=== PATIENT | male | born 1955 | race Caucasian/White ===

== ENCOUNTER 2022-10-15 14:44 | Inpatient (IN) | payer MEDICARE ==
[2022-10-15 16:19] VITALS: BMI 26.3
[2022-10-15] MEDS ORDERED: hydrALAZINE 20 MG/ML VIAL SLOW IVP PRN (17:21)
[2022-10-15] MEDS ORDERED: Dextrose 5% in Water 1,000 ML IV PRN (17:21)
[2022-10-15] MEDS ORDERED: Dextrose 50% Abboject 50 ML SYRINGE SLOW IVP PRN (17:21)
[2022-10-15] MEDS ORDERED: Morphine 4 MG/ML VIAL SLOW IVP PRN (17:21)
[2022-10-15] MEDS ORDERED: Sodium Chloride 0.9% 1,000 ML IV SCH (17:30)
[2022-10-15] MEDS: Ketorolac Tromethamine 30 MG/ML VIAL IVP SCH ×2 (17:51→23:45)
[2022-10-15] MEDS: Acetaminophen 500 MG TAB PO SCH ×2 (17:51→23:46)
[2022-10-15] MEDS: traMADol HCl 50 MG TAB PO SCH ×2 (17:52→23:46)
[2022-10-15] MEDS: Gabapentin 300 MG CAP PO SCH (21:10)
[2022-10-15] MEDS: Tamsulosin HCl 0.4 MG CAP PO SCH (21:10)
[2022-10-15] MEDS: Senokot S 8.6-50 MG TAB PO SCH (21:10)
[2022-10-15] MEDS: Famotidine 20 MG TAB PO SCH (21:12)
[2022-10-16 05:30] LABS: #Eosinphils 0.2 thou/uL (0.0-0.7); #Lymphocytes 1.3 thou/uL (1.20-3.40); #Neutrophils 5.5 thou/uL (1.40-6.50); %Basophils 0.1 % (0.0-1.0); %Lymphocytes 15.8 % (21.0-51.0); %Monocytes 12.6 % (0.0-10.0); %Neutrophils 69.5 % (42.0-75.0); Hemoglobin 12.3 g/dL (14.0-18.0); Mean Corpuscular HGB CONC 34.4 g/dL (32.0-36.0); Mean Corpuscular Hemoglobin 34.4 pg (27.0-31.0); Mean Corpuscular Volume 99.7 fl (78.0-98.0); Mean Platelet Volume 7.7 fL (7.4-10.4); Platelet Count 160 10x3/uL (130-400); RBC Distribution Width 11.6 % (11.5-14.5); Red Blood Cell (RBC) Count 3.57 mill/uL (4.70-6.10)
[2022-10-16] MEDS: Ketorolac Tromethamine 30 MG/ML VIAL IVP SCH (05:39)
[2022-10-16] MEDS: Acetaminophen 500 MG TAB PO SCH ×3 (05:40→18:01)
[2022-10-16] MEDS: traMADol HCl 50 MG TAB PO SCH ×3 (05:40→18:02)
[2022-10-16 06:08] LABS: Anion Gap 11 mmol/L (10-20); BUN (Urea Nitrogen) 17 mg/dL (8.4-25.7); Calc. Creatinine Clearance 68 mL/min (70-130); Calcium 8.3 mg/dL (7.8-10.44); Carbon Dioxide 22 mmol/L (23-31); Chloride 105 mmol/L (98-107); Estimated GFR 71; Glucose 110 mg/dL (80-115); Phosphorus 3.2 mg/dL (2.3-4.7); Potassium 4.1 mmol/L (3.5-5.1); Sodium 134 mmol/L (136-145)
[2022-10-16] MEDS: Gabapentin 300 MG CAP PO SCH ×3 (09:21→21:02)
[2022-10-16] MEDS: Senokot S 8.6-50 MG TAB PO SCH ×2 (09:22→21:04)
[2022-10-16] MEDS: Famotidine 20 MG TAB PO SCH ×2 (09:22→21:03)
[2022-10-16] MEDS: Cyclobenzaprine 10 MG TAB PO PRN ×2 (09:22→18:06)
[2022-10-16] MEDS: Polyethylene Glycol 3350 17 GM Packet PO SCH (09:23)
[2022-10-16] MEDS: Ibuprofen 200 MG TAB PO SCH ×2 (12:58→21:03)
[2022-10-16] MEDS ORDERED: Iopamidol-370 76% 500 ML MDV (1 ML CHARGE) ONE (14:04)
[2022-10-16] MEDS: Tamsulosin HCl 0.4 MG CAP PO SCH (21:04)
[2022-10-17] MEDS: traMADol HCl 50 MG TAB PO SCH ×5 (00:01→19:09)
[2022-10-17] MEDS: Acetaminophen 500 MG TAB PO SCH ×4 (05:55→19:08)
[2022-10-17] MEDS: Ibuprofen 200 MG TAB PO SCH (05:56)
[2022-10-17] MEDS: Cyclobenzaprine 10 MG TAB PO PRN ×2 (05:58→19:09)
[2022-10-17 08:24] LABS: #Eosinphils 0.3 thou/uL (0.0-0.7); #Lymphocytes 0.9 thou/uL (1.20-3.40); #Monocytes 1.2 thou/uL (0.11-0.59); #Neutrophils 8.2 thou/uL (1.40-6.50); %Basophils 0.1 % (0.0-1.0); %Eosinophils 3.2 % (0.0-10.0); %Lymphocytes 8.7 % (21.0-51.0); %Monocytes 11.5 % (0.0-10.0); %Neutrophils 76.5 % (42.0-75.0); Hemoglobin 13.4 g/dL (14.0-18.0); Mean Corpuscular Hemoglobin 32.2 pg (27.0-31.0); Mean Platelet Volume 7.5 fL (7.4-10.4); Platelet Count 178 10x3/uL (130-400); RBC Distribution Width 11.7 % (11.5-14.5); Red Blood Cell (RBC) Count 4.15 mill/uL (4.70-6.10); White Blood Cell (WBC) Count 10.7 10x3/uL (4.8-10.8)
[2022-10-17] MEDS: Gabapentin 300 MG CAP PO SCH ×3 (08:42→21:20)
[2022-10-17] MEDS: Famotidine 20 MG TAB PO SCH ×2 (08:42→21:19)
[2022-10-17 08:58] LABS: Anion Gap 12 mmol/L (10-20); BUN (Urea Nitrogen) 17 mg/dL (8.4-25.7); Calc. Creatinine Clearance 0 mL/min (70-130); Calcium 9.5 mg/dL (7.8-10.44); Carbon Dioxide 23 mmol/L (23-31); Chloride 105 mmol/L (98-107); Estimated GFR 55; Glucose 117 mg/dL (80-115); Magnesium 1.9 mg/dL (1.6-2.6); Phosphorus 2.5 mg/dL (2.3-4.7); Potassium 4.4 mmol/L (3.5-5.1); Sodium 136 mmol/L (136-145)
[2022-10-17] MEDS ORDERED: Sodium Chloride 0.9% 1,000 ML IV SCH (09:00)
[2022-10-17] MEDS: Senokot S 8.6-50 MG TAB PO SCH ×2 (13:03→21:19)
[2022-10-17] MEDS ORDERED: fentaNYL PF 100 MCG/2 ML SYRINGE ONE (16:22)
[2022-10-17] MEDS ORDERED: Ondansetron PF 4 MG/2 ML Vial ONE (16:35)
[2022-10-17] MEDS ORDERED: Dexamethasone 20 MG/5 ML VIAL ONE (16:35)
[2022-10-17] MEDS ORDERED: Lidocaine 1% PF 5 ML VIAL ONE (16:35)
[2022-10-17] MEDS ORDERED: ePHEDrine Sulfate 50 MG/10 ML VIAL ONE (16:35)
[2022-10-17] MEDS ORDERED: PROPOFOL 200 MG/20 ML VIAL ONE (16:35)
[2022-10-17] MEDS ORDERED: Iopamidol 45 ML ONE (16:46)
[2022-10-17] MEDS ORDERED: Iopamidol 0 ML ONE (16:46)
[2022-10-17] MEDS: Sodium Chloride 0.9% 1,000 ML IV SCH ×2 (17:27→19:10)
[2022-10-17] MEDS: Polyethylene Glycol 3350 17 GM Packet PO SCH (19:10)
[2022-10-17] MEDS: Tamsulosin HCl 0.4 MG CAP PO SCH (21:20)
[2022-10-17] MEDS: traMADol HCl 50 MG TAB PO PRN (21:30)
[2022-10-18] MEDS: traMADol HCl 50 MG TAB PO SCH ×5 (00:33→23:01)
[2022-10-18] MEDS: Acetaminophen 500 MG TAB PO SCH ×3 (00:33→12:51)
[2022-10-18] MEDS: Sodium Chloride 0.9% 1,000 ML IV SCH (05:17)
[2022-10-18] MEDS: Cyclobenzaprine 10 MG TAB PO PRN ×2 (05:22→13:43)
[2022-10-18 07:03] LABS: #Lymphocytes 0.8 thou/uL (1.20-3.40); #Monocytes 0.9 thou/uL (0.11-0.59); %Basophils 0.2 % (0.0-1.0); %Eosinophils 0.2 % (0.0-10.0); %Lymphocytes 6.7 % (21.0-51.0); %Monocytes 7.5 % (0.0-10.0); %Neutrophils 85.4 % (42.0-75.0); Hemoglobin 12.6 g/dL (14.0-18.0); Mean Corpuscular HGB CONC 33.1 g/dL (32.0-36.0); Mean Corpuscular Hemoglobin 33.6 pg (27.0-31.0); Mean Platelet Volume 7.8 fL (7.4-10.4); Platelet Count 208 10x3/uL (130-400); RBC Distribution Width 11.7 % (11.5-14.5); Red Blood Cell (RBC) Count 3.74 mill/uL (4.70-6.10); White Blood Cell (WBC) Count 11.7 10x3/uL (4.8-10.8)
[2022-10-18 07:24] LABS: Anion Gap 12 mmol/L (10-20); BUN (Urea Nitrogen) 15 mg/dL (8.4-25.7); Calc. Creatinine Clearance 0 mL/min (70-130); Calcium 9.2 mg/dL (7.8-10.44); Carbon Dioxide 22 mmol/L (23-31); Chloride 104 mmol/L (98-107); Estimated GFR 71; Glucose 143 mg/dL (80-115); Phosphorus 2.7 mg/dL (2.3-4.7); Potassium 4.4 mmol/L (3.5-5.1); Sodium 134 mmol/L (136-145)
[2022-10-18] MEDS: Gabapentin 300 MG CAP PO SCH ×3 (08:19→20:08)
[2022-10-18] MEDS: Senokot S 8.6-50 MG TAB PO SCH ×2 (08:22→20:07)
[2022-10-18] MEDS: Famotidine 20 MG TAB PO SCH (08:22)
[2022-10-18] MEDS: Polyethylene Glycol 3350 17 GM Packet PO SCH (08:22)
[2022-10-18] MEDS: traMADol HCl 50 MG TAB PO PRN (09:34)
[2022-10-18] MEDS: Ondansetron PF 4 MG/2 ML Vial IVP PRN (14:11)
[2022-10-18] MEDS ORDERED: Morphine 2 MG/ML VIAL SLOW IVP SCH (15:00)
[2022-10-18] MEDS: Acetaminophen 325 MG TAB PO SCH ×2 (17:47→23:02)
[2022-10-18] MEDS ORDERED: Bisacodyl 10 MG SUPP PR PRN (18:13)
[2022-10-18] MEDS: Ciprofloxacin 500 MG TAB PO SCH (20:07)
[2022-10-18] MEDS: Tamsulosin HCl 0.4 MG CAP PO SCH (20:08)
[2022-10-18] MEDS ORDERED: Lisinopril 10 MG TAB PO SCH (22:45)
[2022-10-19] MEDS: Acetaminophen 325 MG TAB PO SCH ×3 (05:27→17:53)
[2022-10-19] MEDS: traMADol HCl 50 MG TAB PO SCH ×3 (05:28→17:54)
[2022-10-19] MEDS: Ciprofloxacin 500 MG TAB PO SCH (05:29)
[2022-10-19] MEDS: Ondansetron PF 4 MG/2 ML Vial IVP PRN ×2 (05:39→21:04)
[2022-10-19] MEDS: Polyethylene Glycol 3350 17 GM Packet PO SCH (07:56)
[2022-10-19] MEDS: Lisinopril 10 MG TAB PO SCH ×2 (07:56→21:07)
[2022-10-19] MEDS: Senokot S 8.6-50 MG TAB PO SCH ×2 (07:56→21:13)
[2022-10-19] MEDS: Gabapentin 300 MG CAP PO SCH ×3 (07:56→21:09)
[2022-10-19] MEDS: Acetaminophen/Codeine 30-300mg Tablet PO PRN ×2 (07:57→15:13)
[2022-10-19] MEDS: Cipro 250 MG TAB PO SCH (20:09)
[2022-10-19] MEDS: Tamsulosin HCl 0.4 MG CAP PO SCH (21:06)
[2022-10-20] MEDS: Acetaminophen 325 MG TAB PO SCH ×4 (00:47→17:40)
[2022-10-20] MEDS: traMADol HCl 50 MG TAB PO SCH ×2 (00:48→06:24)
[2022-10-20] MEDS: Acetaminophen/Codeine 30-300mg Tablet PO PRN (03:45)
[2022-10-20] MEDS: Cipro 250 MG TAB PO SCH ×2 (06:22→20:53)
[2022-10-20 07:46] LABS: #Eosinphils 0.1 thou/uL (0.0-0.7); #Lymphocytes 0.8 thou/uL (1.20-3.40); #Monocytes 1.3 thou/uL (0.11-0.59); #Neutrophils 8.8 thou/uL (1.40-6.50); %Basophils 0.1 % (0.0-1.0); %Eosinophils 0.8 % (0.0-10.0); %Monocytes 12.1 % (0.0-10.0); %Neutrophils 79.9 % (42.0-75.0); Hemoglobin 12.6 g/dL (14.0-18.0); Mean Corpuscular HGB CONC 32.2 g/dL (32.0-36.0); Mean Corpuscular Hemoglobin 32.8 pg (27.0-31.0); Mean Platelet Volume 7.1 fL (7.4-10.4); Platelet Count 280 10x3/uL (130-400); RBC Distribution Width 11.7 % (11.5-14.5); Red Blood Cell (RBC) Count 3.83 mill/uL (4.70-6.10)
[2022-10-20] MEDS ORDERED: Morphine 4 MG/ML VIAL SLOW IVP PRN (07:47)
[2022-10-20 08:05] LABS: Anion Gap 15 mmol/L (10-20); BUN (Urea Nitrogen) 20 mg/dL (8.4-25.7); Calc. Creatinine Clearance 0 mL/min (70-130); Calcium 9.5 mg/dL (7.8-10.44); Carbon Dioxide 19 mmol/L (23-31); Chloride 100 mmol/L (98-107); Estimated GFR 65; Glucose 125 mg/dL (80-115); Magnesium 1.9 mg/dL (1.6-2.6); Phosphorus 3.8 mg/dL (2.3-4.7); Potassium 4.2 mmol/L (3.5-5.1); Sodium 130 mmol/L (136-145)
[2022-10-20] MEDS: Gabapentin 300 MG CAP PO SCH ×3 (08:54→21:15)
[2022-10-20] MEDS: Sodium Chloride 0.9% 1,000 ML IV SCH ×2 (08:54→17:40)
[2022-10-20] MEDS: Lisinopril 10 MG TAB PO SCH ×2 (08:55→21:13)
[2022-10-20] MEDS: Polyethylene Glycol 3350 17 GM Packet PO SCH (08:55)
[2022-10-20] MEDS: Senokot S 8.6-50 MG TAB PO SCH (08:55)
[2022-10-20] MEDS: Ketorolac Tromethamine 30 MG/ML VIAL IVP SCH ×2 (13:00→17:38)
[2022-10-20] MEDS: Tamsulosin HCl 0.4 MG CAP PO SCH (21:14)
[2022-10-21] MEDS: Acetaminophen 325 MG TAB PO SCH ×5 (00:08→23:23)
[2022-10-21] MEDS: Ketorolac Tromethamine 30 MG/ML VIAL IVP SCH ×3 (00:10→11:11)
[2022-10-21] MEDS: Sodium Chloride 0.9% 1,000 ML IV SCH ×2 (01:09→08:19)
[2022-10-21] MEDS: Cipro 250 MG TAB PO SCH ×2 (06:22→20:34)
[2022-10-21 07:04] LABS: #Eosinphils 0.3 thou/uL (0.0-0.7); #Lymphocytes 0.7 thou/uL (1.20-3.40); #Monocytes 1.1 thou/uL (0.11-0.59); %Basophils 0.4 % (0.0-1.0); %Eosinophils 3.5 % (0.0-10.0); %Monocytes 13.7 % (0.0-10.0); %Neutrophils 73.4 % (42.0-75.0); Mean Corpuscular HGB CONC 33.7 g/dL (32.0-36.0); Mean Corpuscular Hemoglobin 34.3 pg (27.0-31.0); Platelet Count 266 10x3/uL (130-400); RBC Distribution Width 11.6 % (11.5-14.5); Red Blood Cell (RBC) Count 3.49 mill/uL (4.70-6.10); White Blood Cell (WBC) Count 8.2 10x3/uL (4.8-10.8)
[2022-10-21 07:24] LABS: Anion Gap 15 mmol/L (10-20); BUN (Urea Nitrogen) 22 mg/dL (8.4-25.7); Calc. Creatinine Clearance 0 mL/min (70-130); Calcium 8.6 mg/dL (7.8-10.44); Carbon Dioxide 19 mmol/L (23-31); Chloride 105 mmol/L (98-107); Estimated GFR 83; Glucose 96 mg/dL (80-115); Magnesium 1.9 mg/dL (1.6-2.6); Phosphorus 2.8 mg/dL (2.3-4.7); Potassium 3.9 mmol/L (3.5-5.1); Sodium 135 mmol/L (136-145)
[2022-10-21] MEDS: Lisinopril 10 MG TAB PO SCH ×2 (08:18→20:35)
[2022-10-21] MEDS: guaiFENesin/Codeine 200 mg/20 mg 10 ml Cup PO PRN ×2 (09:58→18:08)
[2022-10-21] MEDS ORDERED: Furosemide 40 MG/4 ML VIAL SLOW IVP SCH (14:04)
[2022-10-21] MEDS: Tamsulosin HCl 0.4 MG CAP PO SCH (20:36)
[2022-10-22] MEDS: Acetaminophen 325 MG TAB PO SCH ×4 (05:49→23:08)
[2022-10-22 09:22] LABS: Anion Gap 16 mmol/L (10-20); BUN (Urea Nitrogen) 20 mg/dL (8.4-25.7); Calc. Creatinine Clearance 0 mL/min (70-130); Calcium 9.1 mg/dL (7.8-10.44); Carbon Dioxide 21 mmol/L (23-31); Chloride 103 mmol/L (98-107); Estimated GFR 79; Glucose 121 mg/dL (80-115); Magnesium 2.1 mg/dL (1.6-2.6); Phosphorus 3.4 mg/dL (2.3-4.7); Potassium 3.9 mmol/L (3.5-5.1); Sodium 136 mmol/L (136-145)
[2022-10-22] MEDS: Lisinopril 10 MG TAB PO SCH ×3 (10:00→23:08)
[2022-10-22] MEDS ORDERED: MD-Gastroview 120 ML BOT ONE (12:40)
[2022-10-22] MEDS: Ondansetron PF 4 MG/2 ML Vial IVP PRN (13:45)
[2022-10-22] MEDS: Neostigmine 0.5 MG in Admixture Fee 1 EACH SC SCH ×2 (15:30→20:31)
[2022-10-22] MEDS ORDERED: Neostigmine 0.5 MG in Admixture Fee 1 EACH SC SCH (18:00)
[2022-10-22] MEDS ORDERED: Sodium Chloride 0.9% 1,000 ML IV SCH (19:00)
[2022-10-22] MEDS: Tamsulosin HCl 0.4 MG CAP PO SCH ×3 (20:24→23:07)
[2022-10-22 22:48] LABS: Bacteria/HPF 3+ HPF (None Seen); Bilirubin Negative (Negative); Blood, Urine 3+ (Negative); Clarity Turbid (Clear); Glucose, Urine (Dipstick) Normal (Negative); Ketone, Urine 60 mg/dL (Negative); Leukocyte 25 Leu/uL (Negative); Mucous/LPF 1+ LPF (<2+); Nitrite Negative (Negative); Protein, Urine (Dipstick) 70 mg/dL (Neg-Trace); RBC/HPF Greater than 50 HPF (0-3); Squamous Epithelial None Seen HPF (0-3); Urobilinogen Normal mg/dL (Less than 2); pH, Urine 5.5 (5.0-9.0)
[2022-10-22] MEDS: guaiFENesin/Codeine 200 mg/20 mg 10 ml Cup PO PRN (23:08)
[2022-10-23] MEDS: Neostigmine 0.5 MG in Admixture Fee 1 EACH SC SCH ×3 (03:07→14:38)
[2022-10-23] MEDS: Acetaminophen 325 MG TAB PO SCH ×4 (06:35→17:15)
[2022-10-23] MEDS: Lisinopril 10 MG TAB PO SCH ×2 (08:21→20:00)
[2022-10-23 08:44] LABS: #Basophils 0.1 thou/uL (0.0-0.2); #Eosinphils 0.1 thou/uL (0.0-0.7); #Lymphocytes 0.9 thou/uL (1.20-3.40); #Monocytes 1.2 thou/uL (0.11-0.59); #Neutrophils 8.7 thou/uL (1.40-6.50); %Basophils 0.5 % (0.0-1.0); %Eosinophils 0.5 % (0.0-10.0); %Lymphocytes 8.4 % (21.0-51.0); %Monocytes 10.8 % (0.0-10.0); %Neutrophils 79.9 % (42.0-75.0); Hemoglobin 12.9 g/dL (14.0-18.0); Mean Corpuscular HGB CONC 34.6 g/dL (32.0-36.0); Mean Corpuscular Hemoglobin 34.6 pg (27.0-31.0); Mean Platelet Volume 6.8 fL (7.4-10.4); Platelet Count 395 10x3/uL (130-400); RBC Distribution Width 11.6 % (11.5-14.5); Red Blood Cell (RBC) Count 3.73 mill/uL (4.70-6.10); White Blood Cell (WBC) Count 10.8 10x3/uL (4.8-10.8)
[2022-10-23 08:59] LABS: Anion Gap 16 mmol/L (10-20); BUN (Urea Nitrogen) 28 mg/dL (8.4-25.7); Calc. Creatinine Clearance 0 mL/min (70-130); Carbon Dioxide 26 mmol/L (23-31); Chloride 104 mmol/L (98-107); Estimated GFR 78; Glucose 124 mg/dL (80-115); Potassium 3.9 mmol/L (3.5-5.1); Sodium 142 mmol/L (136-145)
[2022-10-23] MEDS ORDERED: cefTRIAXone\\ROCEPHIN 2 GM in Sodium Chloride 0.9% 100 ML IVPB SCH (09:00)
[2022-10-23] MEDS: GUAIFENESIN SF SOLN 200 MG/10 ML UDCUP PO PRN (09:08)
[2022-10-23] MEDS: Ciprofloxacin 500 MG TAB PO SCH (19:50)
[2022-10-23] MEDS: Tamsulosin HCl 0.4 MG CAP PO SCH (20:00)
[2022-10-24] MEDS: Acetaminophen 325 MG TAB PO SCH ×5 (05:39→20:02)
[2022-10-24] MEDS: Ciprofloxacin 500 MG TAB PO SCH (05:39)
[2022-10-24 06:36] LABS: #Eosinphils 0.1 thou/uL (0.0-0.7); #Lymphocytes 1.1 thou/uL (1.20-3.40); #Monocytes 1.1 thou/uL (0.11-0.59); #Neutrophils 7.3 thou/uL (1.40-6.50); %Basophils 0.4 % (0.0-1.0); %Eosinophils 1.3 % (0.0-10.0); %Lymphocytes 11.5 % (21.0-51.0); %Monocytes 11.8 % (0.0-10.0); Hemoglobin 11.7 g/dL (14.0-18.0); Mean Corpuscular HGB CONC 33.5 g/dL (32.0-36.0); Mean Corpuscular Hemoglobin 33.6 pg (27.0-31.0); Mean Platelet Volume 6.6 fL (7.4-10.4); Platelet Count 385 10x3/uL (130-400); RBC Distribution Width 11.6 % (11.5-14.5); Red Blood Cell (RBC) Count 3.49 mill/uL (4.70-6.10); White Blood Cell (WBC) Count 9.7 10x3/uL (4.8-10.8)
[2022-10-24 06:54] LABS: Anion Gap 13 mmol/L (10-20); BUN (Urea Nitrogen) 19 mg/dL (8.4-25.7); Calc. Creatinine Clearance 81 mL/min (70-130); Calcium 8.9 mg/dL (7.8-10.44); Carbon Dioxide 25 mmol/L (23-31); Chloride 103 mmol/L (98-107); Estimated GFR 88; Glucose 120 mg/dL (80-115); Potassium 3.8 mmol/L (3.5-5.1); Sodium 137 mmol/L (136-145)
[2022-10-24] MEDS: Lisinopril 10 MG TAB PO SCH ×2 (08:26→19:56)
[2022-10-24] MEDS: Neostigmine 0.5 MG in Admixture Fee 1 EACH SC SCH ×3 (08:26→19:56)
[2022-10-24] MEDS ORDERED: Saccharomyces boulardii 250 MG CAP PO SCH (09:00)
[2022-10-24] MEDS: Ondansetron PF 4 MG/2 ML Vial IVP PRN (13:01)
[2022-10-24] MEDS ORDERED: Scopolamine 1.5 mg/72 hour Patch TD SCH (13:30)
[2022-10-24] MEDS: Potassium Chloride 10 MEQ in Dextrose 5%-Lactated Ringers 1,000 ML IV SCH (14:51)
[2022-10-24] MEDS: Tamsulosin HCl 0.4 MG CAP PO SCH (19:56)
[2022-10-25] MEDS: Acetaminophen 325 MG TAB PO SCH ×4 (03:12→22:52)
[2022-10-25] MEDS: Potassium Chloride 10 MEQ in Dextrose 5%-Lactated Ringers 1,000 ML IV SCH ×2 (03:12→17:46)
[2022-10-25] MEDS: Neostigmine 0.5 MG in Admixture Fee 1 EACH SC SCH ×2 (03:12→08:26)
[2022-10-25 06:03] LABS: #Eosinphils 0.1 thou/uL (0.0-0.7); #Lymphocytes 0.9 thou/uL (1.20-3.40); #Monocytes 0.9 thou/uL (0.11-0.59); #Neutrophils 8.4 thou/uL (1.40-6.50); %Basophils 0.2 % (0.0-1.0); %Eosinophils 0.7 % (0.0-10.0); %Lymphocytes 8.6 % (21.0-51.0); %Neutrophils 81.6 % (42.0-75.0); Mean Corpuscular HGB CONC 33.5 g/dL (32.0-36.0); Mean Corpuscular Hemoglobin 33.8 pg (27.0-31.0); Mean Platelet Volume 6.6 fL (7.4-10.4); Platelet Count 403 10x3/uL (130-400); RBC Distribution Width 11.4 % (11.5-14.5); Red Blood Cell (RBC) Count 3.24 mill/uL (4.70-6.10); White Blood Cell (WBC) Count 10.3 10x3/uL (4.8-10.8)
[2022-10-25 06:39] LABS: Anion Gap 14 mmol/L (10-20); BUN (Urea Nitrogen) 15 mg/dL (8.4-25.7); Calc. Creatinine Clearance 90 mL/min (70-130); Calcium 8.8 mg/dL (7.8-10.44); Carbon Dioxide 21 mmol/L (23-31); Chloride 106 mmol/L (98-107); Estimated GFR 96; Glucose 133 mg/dL (80-115); Phosphorus 2.9 mg/dL (2.3-4.7); Potassium 3.9 mmol/L (3.5-5.1); Sodium 137 mmol/L (136-145)
[2022-10-25] MEDS: Lisinopril 10 MG TAB PO SCH ×2 (08:26→20:22)
[2022-10-25] MEDS: Tamsulosin HCl 0.4 MG CAP PO SCH (20:22)
[2022-10-25] MEDS ORDERED: traMADol HCl 50 MG TAB PO PRN ×2 (23:16)
[2022-10-25] MEDS: GUAIFENESIN SF SOLN 200 MG/10 ML UDCUP PO PRN (23:32)
[2022-10-26] MEDS: Acetaminophen 325 MG TAB PO SCH ×2 (05:12→11:27)
[2022-10-26 07:12] LABS: #Eosinphils 0.2 thou/uL (0.0-0.7); #Lymphocytes 1.1 thou/uL (1.20-3.40); #Monocytes 0.9 thou/uL (0.11-0.59); %Basophils 0.2 % (0.0-1.0); %Eosinophils 1.9 % (0.0-10.0); %Lymphocytes 9.9 % (21.0-51.0); %Monocytes 7.9 % (0.0-10.0); %Neutrophils 80.2 % (42.0-75.0); Hemoglobin 11.6 g/dL (14.0-18.0); Mean Corpuscular HGB CONC 32.5 g/dL (32.0-36.0); Mean Corpuscular Hemoglobin 32.9 pg (27.0-31.0); Mean Platelet Volume 6.9 fL (7.4-10.4); Platelet Count 448 10x3/uL (130-400); RBC Distribution Width 11.5 % (11.5-14.5); Red Blood Cell (RBC) Count 3.53 mill/uL (4.70-6.10); White Blood Cell (WBC) Count 11.3 10x3/uL (4.8-10.8)
[2022-10-26 07:15] LABS: Anion Gap 14 mmol/L (10-20); BUN (Urea Nitrogen) 12 mg/dL (8.4-25.7); Calc. Creatinine Clearance 95 mL/min (70-130); Calcium 8.9 mg/dL (7.8-10.44); Carbon Dioxide 19 mmol/L (23-31); Chloride 105 mmol/L (98-107); Estimated GFR 97; Glucose 108 mg/dL (80-115); Magnesium 2.1 mg/dL (1.6-2.6); Potassium 4.2 mmol/L (3.5-5.1); Sodium 134 mmol/L (136-145)
[2022-10-26] MEDS: Lisinopril 10 MG TAB PO SCH (08:21)
[2022-10-26] MEDS ORDERED: Polyethylene Glycol 3350 17 GM Packet PO SCH (09:00)
[2022-10-26] MEDS ORDERED: Senokot S 8.6-50 MG TAB PO SCH (09:00)
[2022-10-26] MEDS ORDERED: Famotidine 20 MG TAB PO SCH (09:00)
[2022-10-26] MEDS ORDERED: Gabapentin 300 MG CAP PO SCH (09:00)
[2022-10-26 15:33] VITALS: BP 138/83; TEMP 97.7
== END 2022-10-26 15:45 | disposition home or self-care (01) | DRG 958 ==
LOC: IMCU/EMU 15:41 → T4-A 10-16 14:52
PROVIDERS: ADMIT Surgery; ATTEND Surgery
PROC: 0T778DZ Dilation of Left Ureter with Intraluminal Device, Via Natural or Artificial Opening Endoscopic (ICD-10-PCS; principal; 2022-10-17)
PROC: BT1F1ZZ Fluoroscopy of Left Kidney, Ureter and Bladder using Low Osmolar Contrast (ICD-10-PCS; 2022-10-17)
PROC: 0D9670Z Drainage of Stomach with Drainage Device, Via Natural or Artificial Opening (ICD-10-PCS; 2022-10-20)
DX: S37.19XA Other injury of ureter, initial encounter (principal); S27.1XXA Traumatic hemothorax, initial encounter; K56.7 Ileus, unspecified; S37.092A Other injury of left kidney, initial encounter; S22.42XA Multiple fractures of ribs, left side, initial encounter for closed fracture; N17.9 Acute kidney failure, unspecified; N36.8 Other specified disorders of urethra; N40.0 Benign prostatic hyperplasia without lower urinary tract symptoms; K59.00 Constipation, unspecified; W55.22XA Struck by cow, initial encounter; Z87.891 Personal history of nicotine dependence
CPT/HCPCS: 36415; 70450; 71045; 71250; 72125; 74018; 74022; 74178; 74250; 74420; 80048; 81001; 83735; 84100; 85025; 87086; C2617; J0696; J1100; J1650; J1885; J1940; J2270; J2272; J2405; J2704; J2710; J3480; J3490; J7050; Q9963; Q9967